=== PATIENT | female | born 1985 | race Caucasian/White ===

== ENCOUNTER 2019-04-13 10:24 | Inpatient (IN) ==
[2019-04-13] MEDS ORDERED: D5W 1,000 ML IV PRN (12:35)
[2019-04-13] MEDS ORDERED: DULCOLAX PR PRN (12:35)
[2019-04-13] MEDS ORDERED: ZOFRAN IV PRN (12:35)
[2019-04-13] MEDS ORDERED: IMODIUM PO PRN (12:35)
[2019-04-13] MEDS ORDERED: LIBRIUM PO PRN (12:35)
[2019-04-13] MEDS ORDERED: NICODERM PATCH TD PRN (12:35)
[2019-04-13] MEDS ORDERED: PHENOBARBITAL IV PRN (12:35)
[2019-04-13] MEDS ORDERED: ROBAXIN PO PRN (12:35)
[2019-04-13] MEDS ORDERED: MAALOX PLUS LIQUID PO PRN (12:35)
[2019-04-13] MEDS ORDERED: SEROQUEL PO PRN (12:35)
[2019-04-13] MEDS ORDERED: DESYREL PO PRN (12:35)
[2019-04-13] MEDS ORDERED: MOTRIN PO PRN (12:35)
[2019-04-13] MEDS ORDERED: SENOKOT PO PRN (12:35)
[2019-04-13] MEDS ORDERED: BENTYL PO PRN (12:35)
[2019-04-13] MEDS ORDERED: TUBERSOL ID ONE (12:35)
[2019-04-13] MEDS ORDERED: TYLENOL PO PRN (12:35)
[2019-04-13] MEDS ORDERED: ATARAX PO PRN (12:35)
[2019-04-13] MEDS ORDERED: SINEMET 25/100 PO PRN (12:35)
[2019-04-13] MEDS ORDERED: ZOFRAN ODT PO PRN (12:35)
[2019-04-13] MEDS ORDERED: SUBUTEX SL SCH ×2 (12:45→21:00)
[2019-04-13 12:53] LABS: URINE SOURCE VOIDED
[2019-04-13 13:07] LABS: BILIRUBIN URINE NEGATIVE (NEGATIVE); BLOOD URINE 1+ (NEGATIVE); CLARITY CLEAR (CLEAR); COLOR YELLOW; GLUCOSE URINE NEGATIVE (NEGATIVE); KETONE URINE NEGATIVE (NEGATIVE); LEUKOCYTES URINE TRACE (NEGATIVE); NITRITE URINE NEGATIVE (NEGATIVE); PROTEIN URINE NEGATIVE (NEGATIVE); UR AMPHETAMINES QUAL PRESUMPTIVE POSITIVE (NONE DETECT); UROBILINOGEN URINE NORMAL
[2019-04-13 13:08] LABS: UR BARBITUATES QUAL NONE DETECTED (NONE DETECT); UR BENZODIAZEPIN QUAL PRESUMPTIVE POSITIVE (NONE DETECT); UR CANNABINOIDS QUAL NONE DETECTED (NONE DETECT); UR COCAINE QUAL PRESUMPTIVE POSITIVE (NONE DETECT); UR METHADONE QUAL NONE DETECTED (NONE DETECT); UR METHAMPHETAMINE QUAL PRESUMPTIVE POSITIVE (NONE DETECT); UR OPIATES QUAL PRESUMPTIVE POSITIVE (NONE DETECT); UR OXYCODONE QUAL NONE DETECTED (NONE DETECT); UR PCP QUAL NONE DETECTED (NONE DETECT); UR PROPOXYPHENE QUAL NONE DETECTED (NONE DETECT); UR TCA QUAL NONE DETECTED (NONE DETECT)
[2019-04-13 13:10] LABS: HEMATOCRIT 45.1 % (37.0-47.0); HEMOGLOBIN 15.3 g/dL (12.0-16.0); MCH 31.1 PG (27-31); MCHC 33.9 g/dL (33-37); MCV 91.7 FL (81-99); MPV 8.8 FL (7.4-10.4); RBC 4.92 XMIL (4.2-5.4); WBC 6.6 X1000 (4.8-10.8)
[2019-04-13 13:11] LABS: URINE BACTERIA 1+ /HFP; URINE CAST NONE SEEN /LPF; URINE CRYSTAL NONE SEEN /HPF; URINE EPITHELIAL CELLS >10 /HPF (<10); URINE RBC <10 /HPF (<10); URINE WBC 20-40 /HPF (<10); URINE YEAST NONE SEEN /HPF
[2019-04-13 13:28] LABS: AGAP 14; ALBUMIN 4.5 g/dL (3.5-5.0); ALKALINE PHOSPHATASE 98 U/L (32-104); BUN 7 mg/dL (8-22); CALCIUM 10.1 mg/dL (8.8-10.2); CHLORIDE 98 mmol/L (98-107); COSMO 276; CREATININE 0.6 mg/dL (0.5-0.9); ESTIMATED GFR > 60; GLUCOSE 102 mg/dL (70-104); GOT 21 U/L (10-30); GPT 19 U/L (10-36); INR 0.92; POTASSIUM 4.4 mmol/L (3.5-5.1); PROTIME 12.8 Seconds (11.0-16.0); SODIUM 139 mmol/L (136-145); TCO2 27 mmol/L (25-35); TOTAL PROTEIN 8.6 g/dL (6.3-8.3)
[2019-04-13 13:33] LABS: AMYLASE 31 U/L (20-200); LIPASE 16 U/L (13-60)
[2019-04-13 15:27] VITALS: BP 137/99
[2019-04-14] MEDS ORDERED: PROTONIX PO SCH (07:00)
[2019-04-14] MEDS ORDERED: FOLIC ACID PO SCH (09:00)
[2019-04-14] MEDS ORDERED: THERA M PLUS PO SCH (09:00)
[2019-04-14] MEDS ORDERED: VITAMIN B-1 PO SCH (09:00)
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
--- NOTE | 2019-04-15 15:36 | DISCHARGE SUMMARY ---
ADMISSION DATE: 04/13/2019 DISCHARGE DATE: 04/13/2019 DISCHARGE DIAGNOSES: 1. Patient left AMA. 2. Same as H P. CONSULTATION: None. PROCEDURES: None. BRIEF HOSPITAL COURSE: The patient is a 34-year-old female who admitted to the hospital stating that she wanted to get her life under control and was having significant withdrawal symptoms. However, she left the hospital less than 12 hours after admission. cc: Antonino Roberts MD
== END 2019-04-13 15:56 | disposition left against medical advice (07) | DRG 894 ==
LOC: P.DIRADM 10:24 → P.MEDSURG 11:04
PROVIDERS: ADMIT Family Medicine; ATTEND Family Medicine

== ENCOUNTER 2019-06-01 08:33 | Inpatient (IN) ==
[2019-06-01] MEDS ORDERED: D5W 1,000 ML IV PRN (12:37)
[2019-06-01] MEDS ORDERED: SEROQUEL PO PRN (12:37)
[2019-06-01] MEDS ORDERED: IMODIUM PO PRN ×2 (12:37)
[2019-06-01] MEDS ORDERED: NICODERM PATCH TD PRN (12:37)
[2019-06-01] MEDS ORDERED: MAALOX PLUS LIQUID PO PRN (12:37)
[2019-06-01] MEDS ORDERED: TUBERSOL ID ONE (12:37)
[2019-06-01] MEDS ORDERED: ZOFRAN IV PRN (12:37)
[2019-06-01] MEDS ORDERED: ZOFRAN ODT PO PRN (12:37)
[2019-06-01] MEDS ORDERED: MOTRIN PO PRN (12:37)
[2019-06-01] MEDS ORDERED: NICOTINE GUM BUCCAL PRN (12:37)
[2019-06-01] MEDS ORDERED: ZOFRAN IM PRN (12:37)
[2019-06-01] MEDS ORDERED: DULCOLAX PR PRN (12:37)
[2019-06-01] MEDS ORDERED: SENOKOT PO PRN (12:37)
[2019-06-01] MEDS ORDERED: TYLENOL PO PRN (12:37)
[2019-06-01] MEDS ORDERED: PHENOBARBITAL IV PRN (12:37)
[2019-06-01] MEDS ORDERED: DESYREL PO PRN (12:37)
[2019-06-01] MEDS ORDERED: SINEMET 25/100 PO PRN (13:31)
[2019-06-01] MEDS ORDERED: BENTYL PO PRN (13:31)
[2019-06-01] MEDS ORDERED: ROBAXIN PO PRN (13:31)
[2019-06-01] MEDS ORDERED: ATARAX PO PRN (13:31)
[2019-06-01] MEDS ORDERED: LIBRIUM PO PRN (13:31)
[2019-06-01] MEDS ORDERED: SUBOXONE 2 MG/0.5 MG FILM SL SCH (13:45)
[2019-06-01] MEDS ORDERED: PNEUMOVAX 23 IM ONE (14:12)
[2019-06-01] MEDS ORDERED: FLU VACCINE IM ONE (14:14)
[2019-06-01 14:28] LABS: AMYLASE 43 U/L (20-200); LIPASE 25 U/L (13-60)
[2019-06-01] MEDS: VENTOLIN HFA INH PRN (15:47)
[2019-06-01 20:24] LABS: URINE SOURCE CLEAN CATCH
[2019-06-01 20:27] LABS: BILIRUBIN URINE NEGATIVE (NEGATIVE); BLOOD URINE SMALL (NEGATIVE); COLOR YELLOW; GLUCOSE URINE NEGATIVE (NEGATIVE); KETONE URINE NEGATIVE (NEGATIVE); LEUKOCYTES URINE NEGATIVE (NEGATIVE); NITRITE URINE NEGATIVE (NEGATIVE); PROTEIN URINE TRACE mg/dL (NEGATIVE); SP GRAVITY URINE 1.025; TURBIDITY URINE CLEAR (CLEAR); UROBILINOGEN URINE NORMAL (NORMAL)
[2019-06-01 20:39] LABS: UR AMPHETAMINES QUAL PRESUMPTIVE POSITIVE (NONE DETECT); UR BARBITUATES QUAL NONE DETECTED (NONE DETECT); UR BENZODIAZEPIN QUAL PRESUMPTIVE POSITIVE (NONE DETECT); UR CANNABINOIDS QUAL NONE DETECTED (NONE DETECT); UR COCAINE QUAL NONE DETECTED (NONE DETECT); UR METHADONE QUAL NONE DETECTED (NONE DETECT); UR METHAMPHETAMINE QUAL NONE DETECTED (NONE DETECT); UR OPIATES QUAL PRESUMPTIVE POSITIVE (NONE DETECT); UR OXYCODONE QUAL NONE DETECTED (NONE DETECT); UR PCP QUAL NONE DETECTED (NONE DETECT); UR PROPOXYPHENE QUAL NONE DETECTED (NONE DETECT); UR TCA QUAL NONE DETECTED (NONE DETECT)
[2019-06-01 20:45] LABS: UR EPITHELIAL CELLS >10 /HPF (<10); URINE BACTERIA 1+ /HPF; URINE YEAST NONE SEEN
[2019-06-01 20:46] LABS: URINE CASTS NONE SEEN; URINE CRYSTALS URIC ACID PRESENT
[2019-06-01] MEDS: TENORMIN PO SCH (21:57)
[2019-06-02] MEDS: PROTONIX PO SCH (06:10)
[2019-06-02] MEDS: SYNTHROID PO SCH (06:10)
[2019-06-02] MEDS: FOLIC ACID PO SCH (08:07)
[2019-06-02] MEDS: VITAMIN B-1 PO SCH (08:07)
[2019-06-02] MEDS: CELEXA PO SCH (08:07)
[2019-06-02] MEDS: THERA M PLUS PO SCH (08:07)
[2019-06-02] MEDS: SUBOXONE 2 MG/0.5 MG FILM SL SCH (08:07)
[2019-06-02] MEDS: TENORMIN PO SCH ×2 (08:14→22:59)
[2019-06-02] MEDS: VENTOLIN HFA INH PRN (08:42)
--- NOTE | 2019-06-02 19:39 | PROGRESS NOTE ---
DATE: 06/02/2019 SUBJECTIVE: Patient notes she is feeling okay. Denies any fevers or chills. Still having some nausea and abdominal pain. PHYSICAL EXAMINATION: Temperature 97.7 degrees, pulse 64, respiratory rate 18, blood pressure 100/63.General: Patient is awake, alert, currently in no respiratory distress. HEENT: Normocephalic. Neck: Supple. Cardiovascular: Regular rate. Chest: Clear. Abdomen: Soft. Extremities: Moves all extremities. Neurologic: No changes. ASSESSMENT: 1. Nausea and vomiting. 2. Abdominal pain. 3. Myalgias. 4. Paresthesias. 5. Paroxysmal sweating. 6. Opiate abuse withdrawal and stabilization. PLAN: We will continue patient in the hospital. Continue Suboxone. Continue counseling. Further orders as needed. cc: Antonino Roberts MD
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
[2019-06-03] MEDS: SUBOXONE 2 MG/0.5 MG FILM SL SCH ×3 (00:51→22:01)
[2019-06-03] MEDS: SYNTHROID PO SCH (06:20)
[2019-06-03] MEDS: PROTONIX PO SCH (06:20)
[2019-06-03] MEDS: VENTOLIN HFA INH PRN (09:56)
[2019-06-03] MEDS ORDERED: SUBOXONE 2 MG/0.5 MG FILM SL ONE (10:37)
[2019-06-03] MEDS: CELEXA PO SCH (11:32)
[2019-06-03] MEDS: FOLIC ACID PO SCH (11:32)
[2019-06-03] MEDS: THERA M PLUS PO SCH (11:32)
[2019-06-03] MEDS: VITAMIN B-1 PO SCH (11:32)
[2019-06-03] MEDS: TENORMIN PO SCH ×2 (12:14→22:01)
[2019-06-04] MEDS: SYNTHROID PO SCH ×2 (05:49→07:54)
[2019-06-04] MEDS: PROTONIX PO SCH ×2 (05:49→07:53)
[2019-06-04 07:32] VITALS: BP 91/48
[2019-06-04] MEDS: FOLIC ACID PO SCH (09:36)
[2019-06-04] MEDS: CELEXA PO SCH (09:36)
[2019-06-04] MEDS: VITAMIN B-1 PO SCH (09:36)
[2019-06-04] MEDS: THERA M PLUS PO SCH (09:36)
--- NOTE | 2019-06-04 10:11 | PROGRESS NOTE ---
DATE: 06/03/2019 SUBJECTIVE: Patient notes that she is feeling okay, although she is still tired. Notes that she has not really been out of bed. PHYSICAL EXAMINATION: Vital Signs: Reviewed: She is awake, alert. She is in no respiratory distress. Temperature 98 degrees, pulse 64, respiratory rate 18, BP 96/58. General: Patient is pleasant. She is in no respiratory distress. HEENT: Normocephalic. Neck: Supple. Cardiovascular: Regular rate. No murmurs. Chest: Clear. Abdomen: Soft. Extremities: Moves all extremities. Neurologic: No changes. ASSESSMENT: 1. Nausea and vomiting. 2. Abdominal pain. 3. Myalgias. 4. Tremors. 5. Paresthesias. 6. Paroxysmal sweating. 7. Opiate abuse withdrawal and stabilization. 8. Hypotension, stable. PLAN: We will continue patient in the hospital. Continue to follow. We will restart some of her Suboxone and we will see how she does. We will follow her blood pressures. Further orders as needed. cc: Antonino Roberts MD
--- NOTE | 2019-06-05 08:16 | DISCHARGE SUMMARY ---
ADMISSION DATE: 06/01/2019 DISCHARGE DATE: 06/04/2019 DISCHARGE DIAGNOSES: 1. Nausea and vomiting. 2. Abdominal pain. 3. Myalgias. 4. Paresthesias. 5. Paroxysmal sweating. 6. Opiate abuse, withdrawal, and stabilization. 7. Hypotension, although I expect this is her chronic baseline. CONSULTATIONS: None. PROCEDURES: None. BRIEF HOSPITAL COURSE: The patient is a 34-year-old female who presented to [facility] secondary to nausea, vomiting, abdominal pain, myalgias, paresthesias. She was treated in the usual fashion, placed on Suboxone. It was initially held because her blood pressures were low, although her blood pressures remained there. She was asymptomatic. She was restarted on Suboxone without any difficulty. DISPOSITION: The patient will be discharged home. She will continue Suboxone 4 mg twice daily. She will follow up outpatient with treatment facility of choice. Discussed with the patient that she needs to avoid all persons, places, and situations in which she has been using and abusing in the past. She needs outpatient life counseling as well as drug counseling. cc: Antonino Roberts MD
== END 2019-06-04 11:34 | disposition home or self-care (01) | DRG 897 ==
LOC: P.DIRADM 10:10 → P.MEDSURG 11:15
PROVIDERS: ADMIT Family Medicine; ATTEND Family Medicine